=== PATIENT | male | born 1940 | race Caucasian/White ===

== ENCOUNTER 2016-07-23 21:01 | Emergency (ER) | payer MEDICARE, OTHER ==
--- NOTE | 2016-07-24 00:14 | ER ---
ADMIT: 07/23/2016 RM/LOC: ER [facility] MR#: [id number] [place], [place] [id number] [address] [place] [address] Emergency Room Report SEX: M AGE: 76 : 1940 DATE: 07/23/2016 TIME: 2101 hours. Please refer to my T-sheet for complete H and P. HISTORY OF PRESENT ILLNESS: Briefly, the patient is a 76-year-old who has had a cough for a day or so, but that is not what brought him in. He was eating a piece of brisket when he felt like it caught in his throat. He then was able to swallow water but he still felt a funny feeling in his throat, comes in for evaluation. PHYSICAL EXAMINATION: VITAL SIGNS: Blood pressure 159/80, pulse 103, respirations 20, temp 101.4, sat 96%. GENERAL: No acute distress. HEENT: Grossly normal. LUNGS: Clear. HEART: Regular. ABDOMEN: Soft. SKIN: No rash. EMERGENCY DEPARTMENT COURSE: Chest x-ray revealed no obvious infiltrate. He was able to drink several cups of water. We gave him a dose of Zithromax. He was ready for discharge. ASSESSMENT: 1. Foreign body food bolus, resolved in the emergency department. 2. Bronchitis. 3. Fever. PLAN: Fluids. Return if worse. Z-Jer. Follow up with Dr. Sena this week. Recheck. Davey Moncada MD/ ria JOB #: [id number] CC: Davey Moncada MD, Attending Physician Lise Sena MD, Family Physician
== END 2016-07-23 22:28 | disposition home or self-care (01) ==
LOC: ER 21:01
DX: J40 Bronchitis, not specified as acute or chronic (principal); I10 Essential (primary) hypertension; Z88.0 Allergy status to penicillin; Z85.828 Personal history of other malignant neoplasm of skin